=== PATIENT | male | born 1975 | race Caucasian/White ===

== ENCOUNTER → 2023-12-08 | Outpatient (CLI) | payer OTHER ==
[~2023-12-08] MED LIST: CLEOCIN150 MG PO; HUMALOG100 U/ML SC; HUMALOG100 UNIT/1 SQ; LANTUS; LANTUS100 U/ML SC; MEDROL DOSEPAK4 MG PO; NORCO 325 MG-51 TAB PO; PRILOSEC20 M1 PO; PRILOSEC40 MG PO; ULTRAM50 MG PO; ZITHROMAX250 MG PO; ZOFRAN4 MG PO
[2023-12-08 07:58] LABS: BASO # 0.2 10*3/uL (0.0-0.1); BASO % 1.7 % (0.0-1.0); EOS # 0.9 10*3/uL (0.0-0.4); EOS % 9.6 % (1.0-4.0); HEMATOCRIT 50.9 % (42.0-52.0); LYMPH # 1.9 10*3/uL (1.3-4.4); LYMPH % 20.6 % (27.0-41.0); MEAN CELL VOLUME 88.1 fl (80.0-94.0); MEAN CORPUSCULAR HGB 29.4 pg (27.0-31.0); MEAN CORPUSCULAR HGB CONC 33.4 g/dl (33.0-37.0); MEAN PLATELET VOLUME 9.6 fl (9.6-12.3); MONO # 0.6 10*3/uL (0.1-1.0); MONO % 6.1 % (3.0-9.0); NEUT # 5.6 10*3/uL (2.3-7.9); NEUT % 61.9 % (47.0-73.0); PLATELET COUNT AUTOMATED 219 10*3/uL (130-400); RED BLOOD COUNT 5.78 10*6/uL (4.50-5.90); RED CELL DISTRI WIDTH 12.6 % (0-14.5); WHITE BLOOD COUNT 9.1 10*3/uL (4.8-10.8)
[2023-12-08 08:24] LABS: ALKALINE PHOSPHATASE 114 U/L (46-116); BUN 12 mg/dl (9-23); CHLORIDE 105 mmol/L (98-107); POTASSIUM 4.4 mmol/L (3.4-5.1); SGPT/ALT 34 U/L (5-49); TOTAL PROTEIN 6.5 gm/dL (6.0-8.0)
== END ==
LOC: LAB 07:38
PROVIDERS: Occupational Therapist; ATTEND Family Medicine
DX: M54.2 Cervicalgia (principal); E10.9 Type 1 diabetes mellitus without complications; G62.9 Polyneuropathy, unspecified

== ENCOUNTER → 2023-12-22 | Outpatient (CLI) | payer OTHER | END | disposition home or self-care (01) | LOC: RAD 08:01 | PROVIDERS: ATTEND Family Medicine | DX: M46.02 Spinal enthesopathy, cervical region (principal); M50.822 Other cervical disc disorders at C5-C6 level; M50.823 Other cervical disc disorders at C6-C7 level; M48.02 Spinal stenosis, cervical region ==